=== PATIENT | male | born 2000 | race Two or more races ===

== ENCOUNTER 2024-07-25 23:46 | Emergency (ER) | payer BC, SELFPAY ==
[2024-07-25 23:53] VITALS: BMI 30.9
[2024-07-25 23:54] VITALS: BP 110/69; PULSE 95; RESP 17; TEMP 37.3; O2SAT 95
--- NOTE | 2024-07-25 23:56 | PD.EDHA ---
ED Headache RME/HPI General Chief Complaint: Headache Stated Complaint: AQUINO, DIZZINESS, BLURRED VISION SINCE 1500, LOW BP Time Seen by Provider: 07/25/24 23:57 Arrival date/time: 07/25/24 23:46 RME / HPI RME / HPI Narrative: This section includes all my notes and documentations, including HPI, PE, and ED course. Christofer Garduno MD HPI: 23yo male with a history of migraines presents to the ED for a chief complaint of a generalized headache. Patient states he started having a severe headache at 1500. No radiation or migration. He started having dizziness and blurry vision and was concerned, so he came in for evaluation. Denies any fever, chills, slurred speech or any other associated symptoms. No other complaints reported. ROS: All negative except as documented in HPI. Physical Exam: General: Alert and oriented. No acute distress when remaining still. Eyes: Conjunctivae and lids clear. ENT: No nasal congestion. Neck: Supple. Heart: RRR. Lungs: No respiratory distress. Good air movement. No rhonchi, wheezing, rales. Abdomen: Soft and nontender. Legs: No clubbing, cyanosis, edema. Skin: Warm and dry. Neuro: Alert and oriented X 3. At this point, diagnoses include migraine headache. Treatment here included Imitrex and two Tylenol #3. When I looked for the patient to reevaluate, I was told the patient eloped. Christofer Garduno MD Related Data Allergies Allergy/AdvReac Type Severity Reaction Status Date / Time No Known Allergies Allergy Verified 07/25/24 23:48 Review of Systems Review of Systems Systems Reviewed: All systems reviewed, normal except as documented Past Medical History Social History SMOKING STATUS: Never smoker ED Exam Narrative Physical exam: As noted in HPI. Course Quality Measures none Orders Category Date Time Status ACETAMINOPHEN w/COD 300-30 [Tylenol w/Cod #3] Med 07/25/24 23:58 Discontinued 2 tab PO X1 ONE Ondansetron Odt [Zofran Odt] Med 07/25/24 23:58 Discontinued 4 mg PO X1 ONE SUMAtriptan [Imitrex] Med 07/25/24 23:58 Discontinued 50 mg PO X1 ONE Vital Signs Vital signs: Vital Signs Temperature 99.2 F 07/25/24 23:54 Pulse Rate 95 07/25/24 23:54 Respiratory Rate 17 07/25/24 23:54 Blood Pressure 110/69 07/25/24 23:54 Pulse Oximetry (%) 95 07/25/24 23:54 Oxygen Delivery Method Room Air 07/25/24 23:54 Headache MDM Narrative MDM Narrative:: Scribe Attestation: 07/25/24 Silvia Infante am scribing for and in the presence of Dr. Garduno. Patient data External records reviewed:: [facility] previous records (Per chart review, patient has no previous ED visits or admissions to this facility.) Clinical information provided by:: patient Social determinants that could affect healthcare access:: none Patient has the following chronic illnesses:: none How is presenting disease/condition affected by chronic disease/condition?: no chronic disease Evaluation data The following diagnostics were reviewed and interpreted by me:: other (specify) (none) Lab and/or radiology exams considered but not ordered:: none Interpretation Summary: none Medications / Prescriptions Medications or Prescriptions considered but not ordered:: none Medication administrations:: Medication Administration History Discontinued Medications Acetaminophen/Codeine Phosphate (Acetaminophen W/Cod 300-30 Tablet) 2 tab PO X1 ONE Stop: 07/25/24 23:59 Last Admin: 07/26/24 00:36 Dose: 2 tab Documented By: HESHAM Ondansetron HCl (Ondansetron Odt 4 Mg Tabrap) 4 mg PO X1 ONE; Protocol Stop: 07/25/24 23:59 Last Admin: 07/26/24 00:35 Dose: 4 mg Documented By: HESHAM Sumatriptan Succinate (Sumatriptan 25 Mg Tablet) 50 mg PO X1 ONE Stop: 07/25/24 23:59 Last Admin: 07/26/24 01:22 Dose: 50 mg Documented By: HESHAM Imitrex and Zofran and two Tylenol #3 Consultations Consultation(s) initiated? (list below): No Diagnosis Differential diagnosis headache: migraine, tension headache, sinusitis and postconcussion syndrome Most likely diagnosis given after review of the tests above:: Migraine headache Admission Indicated Admission indicated?: not indicated Explain why admission is indicated or not indicated:: No criteria for admission. Admission Request Was there a request for admission?: No Disposition Plan Disposition Plan: other (specify) (Patient eloped.) Discharge Plan Plan Patient Disposition: Elopement Prescriptions/Referrals Referrals: No Primary/Family,Physician [Primary Care Provider] - In 1 week Problem List Clinical Impression: Migraine Patient/Caregiver Discharge Instructions Print Language: Citizen Of [place]
--- NOTE | 2024-07-25 23:58 | PC.NURSE ---
DR. HOOVER ASSESSING PATIENT AT THIS TIME.
[2024-07-26] MEDS: ONDANSETRON ODT 4 MG TABRAP PO (00:35)
[2024-07-26] MEDS: ACETAMINOPHEN w/COD 300-30 TABLET 2 TAB PO (00:36)
[2024-07-26] MEDS: SUMAtriptan 25 MG TABLET 50 MG PO (01:22)
--- NOTE | 2024-07-26 02:54 | PC.NURSE ---
CALLED PATIENT IN THE LOBBY AND OUTSIDE, NO ANSWER RECEIVED.
--- NOTE | 2024-07-26 03:29 | PC.NURSE ---
CALLED PATIENT IN THE LOBBY AND OUTSIDE, NO ANSWER RECEIVED.
--- NOTE | 2024-07-26 03:57 | PC.NURSE ---
CALLED PATIENT IN THE LOBBY AND OUTSIDE, NO ANSWER RECEIVED.
== END 2024-07-26 03:58 | disposition left against medical advice (07) ==
PROVIDERS: Emergency Provider Emergency Medicine
DX: G43.909 Migraine, unspecified, not intractable, without status migrainosus (principal)
CPT/HCPCS: 99281; Q0162; A9270